=== PATIENT | female | born 1945 | race Caucasian/White ===

== ENCOUNTER 2018-05-08 20:54 | Inpatient (IN) | payer OTHER ==
--- NOTE | 2018-05-08 14:24 | PDOC ---
Rapid Medical Evaluation Time Seen by Provider: 05/08/18 14:21 Medical Evaluation: 05/08/18 14:21 I have performed a brief in-person evaluation patient. The patient presents with the chief complaint of: Left flank pain radiating to the groin since last evening with +n/v today/NBNB.. Pt denies any urinary symptoms NO H/O renal stones Pertinent physical exam findings: Left flank pain on percussion I have ordered the following:cbc/cmp/ua/uc/iv The patient will proceed to the ED for further evaluation. Discharge Disposition - Referrals Referrals: Lynn Healy MD [Primary Care Provider] - - Patient Instructions - Post Discharge Activity
[2018-05-08 14:47] LABS: URINE APPEARANCE CLOUDY; URINE BILIRUBIN NEGATIVE (<2.0 mg/dL); URINE COLOR YELLOW; URINE GLUCOSE (UA) 1+ (NEGATIVE); URINE KETONE NEGATIVE (NEGATIVE); URINE LEUK ESTERASE 2+ (NEGATIVE); URINE NITRITE NEGATIVE (NEGATIVE); URINE PROTEIN 1+ (NEGATIVE); URINE UROBILINOGEN NEGATIVE mg/dL (0.2-1.0)
[2018-05-08 14:52] LABS: EPI CELLS FEW /HPF (FEW); URINE HYALINE CAST 4 /lpf
--- NOTE | 2018-05-08 17:18 | PDOC ---
Attending Attestation - Resident Resident Name: Richard Dempsey - ED Attending Attestation I have performed the following: I have examined & evaluated the patient, The case was reviewed & discussed with the resident, I agree w/resident's findings & plan, Exceptions are as noted - HPI HPI: 05/08/18 17:08 72yo F hx HTN, HLD, diabetes, and osteoporosis p/w left flank pain wrapping around abdomen, radiating to the groin, which is exacerbated with movement since last evening. Patient reports associated symptoms of subjective chills, nausea, and 1 episode of NBNB emesis. Patient denies hematuria, dysuria, or any other urinary symptoms. Denies trauma. Denies chest pain, SOB, epigastric pain, focal weakness or numbness, denies h/o renal stones. - Physicial Exam PE: 05/08/18 17:55 GENERAL: Awake, alert, and fully oriented, in no acute distress. Pleasant. EYES: PERRLA, EOMI, sclera anicteric, conjunctiva clear ENT: Oropharynx clear without exudates. Moist mucosa NECK: Normal ROM, supple, no lymphadenopathy, JVD, or masses LUNGS: Breath sounds equal, clear to auscultation bilaterally. No wheezes, and no crackles HEART: Regular rate and rhythm, normal S1 and S2, no murmurs, rubs or gallops ABDOMEN: Soft, nontender, normoactive bowel sounds. No guarding, no rebound. No masses EXTREMITIES: Normal range of motion, no edema. No cords, erythema, or tenderness. WWP, 2+ pulses x4 BACK: No midline spinal tenderness in cervical/thoracic/lumbar region. + L CVAT NEUROLOGICAL: Normal speech, cranial nerves intact, negative pronator drift, 5/ 5 strength in all 4 extremities, normal sensation to light touch in all 4 extremities, normal cerebellar exam, normal gait, normal tone SKIN: Warm, dry, normal turgor, no rashes or lesions noted. - Medical Decision Making 05/08/18 18:04 72yo F hx HTN, HL, DM presents to the ED with 1 day of L flank pain radiating to LLQ a/w N/V. Vitals stable, pt well appearing. DDx includes renal colic vs UTI vs pyelonephritis vs MSK pain. UA concerning thus far with infection, given clinical evidence of pyelo, will cover with abx. CTAP pending to eval for renal colic. Labs pending. Anticipate admission. PT signed out to oncoming attending for f/u on diagnostics and mgmt
[2018-05-08 17:32] LABS: BASO % 0.8 % (0-2.0); EOS % 0.3 % (0-4.5); HEMATOCRIT 31.6 % (32.4-45.2); HEMOGLOBIN 10.2 GM/dL (10.7-15.3); LYMPH % 15.3 % (8-40); MCH 26.4 pg (25.7-33.7); MCHC 32.4 g/dl (32.0-36.0); MEAN CELL VOLUME 81.5 fl (80-96); MEAN PLT VOLUME 9.1 fl (7.5-11.1); MONO % 5.9 % (3.8-10.2); NEUT % 77.7 % (42.8-82.8); PLATELET COUNT 351 K/MM3 (134-434); RBC 3.87 M/mm3 (3.60-5.2); RDW 13.8 % (11.6-15.6); WHITE BLOOD COUNT 16.9 K/mm3 (4.0-10.0)
--- NOTE | 2018-05-08 18:35 | PDOC ---
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 Denies hx of UTIs, kidney stones, sick contacts, recent travel. Pt states the pain is constant, progressively worsened today, described as sharp and radiates from her left flank to the lower left abdomen. Denies difficulty urinating, dysuria, visible blood in urine, changes in bowel habits, CP, SOB. Past History - Past Medical History Allergies/Adverse Reactions: Allergies Allergy/AdvReac Type Severity Reaction Status Date / Time Penicillins Allergy Verified 05/08/18 14:25 COPD: No Diabetes: Yes Hypercholesterolemia: Yes Other medical history: osteoporosis - Suicide/Smoking/Psychosocial Hx Smoking History: Never smoked Have you smoked in the past 12 months: No Information on smoking cessation initiated: No Hx Alcohol Use: No Drug/Substance Use Hx: No Review of Systems - Review of Systems Constitutional: Yes: Chills. No: Fever Respiratory: No: Shortness of Breath Cardiac (ROS): No: Chest Pain ABD/GI: Yes: Nausea, Vomiting. No: Constipated, Diarrhea : No: Burning, Dysuria, Frequency, Flank Pain Musculoskeletal: Yes: Back Pain (left flank) *Physical Exam - Vital Signs Last Vital Signs Temp Pulse Resp BP Pulse Ox 97.5 F L 77 16 167/78 100 05/08/18 14:12 05/08/18 14:12 05/08/18 14:12 05/08/18 14:12 05/08/18 14:12 - Physical Exam General Appearance: Yes: Nourished, Appropriately Dressed, Apparent Distress ( sitting up in bed and in pain) HEENT: positive: EOMI Respiratory/Chest: positive: Lungs Clear, Normal Breath Sounds. negative: Accessory Muscle Use, Crackles, Rales, Rhonchi, Wheezing Cardiovascular: positive: Regular Rhythm, Regular Rate, S1, S2. negative: Edema , JVD, Murmur Vascular Pulses: Dorsalis-Pedis (R): 4+, Doralis-Pedis (L): 4+ Gastrointestinal/Abdominal: positive: Normal Bowel Sounds, Flat, Soft, Tenderness (left flank and abdomen). negative: Pulsatile Mass, Distended, Guarding, Rebound Musculoskeletal: positive: Normal Inspection, CVA Tenderness (L) Extremity: positive: Normal Capillary Refill Integumentary: positive: Normal Color, Dry, Warm Neurologic: positive: Fully Oriented, Alert, Normal Mood/Affect, Normal Response Moderate Sedation - Procedure Monitoring Vital Signs: Procedure Monitoring Vital Signs Temperature 97.5 F L 05/08/18 14:12 Pulse Rate 77 05/08/18 14:12 Respiratory Rate 16 05/08/18 14:12 Blood Pressure 167/78 05/08/18 14:12 O2 Sat by Pulse Oximetry (%) 100 05/08/18 14:12 ED Treatment Course - LABORATORY CBC & Chemistry Diagram: 05/08/18 16:24 05/08/18 14:24 - ADDITIONAL ORDERS Additional order review: Laboratory Results 05/08/18 14:26 Urine Color Yellow Urine Appearance Cloudy Urine pH 7.0 Ur Specific [place] 1.018 Urine Protein 1+ H Urine Glucose (UA) 1+ H Urine Ketones Negative Urine Blood 2+ H Urine Nitrite Negative Urine Bilirubin Negative Urine Urobilinogen Negative Ur Leukocyte Esterase 2+ H Urine WBC (Auto) 50 Urine RBC (Auto) 97 Ur Epithelial Cells Few Hyaline Casts 4 05/08/18 16:24 RBC 3.87 MCV 81.5 MCHC 32.4 RDW 13.8 MPV 9.1 Neutrophils % 77.7 Lymphocytes % 15.3 Monocytes % 5.9 Eosinophils % 0.3 Basophils % 0.8 - RADIOLOGY Radiology Studies Ordered: Category Date Time Status SPIRAL- RENAL-STONE CT [CT] Stat CT Scan 05/08/18 15:54 Ordered - Medications Given in the ED: ED Medications Discontinued Medications Generic Name Dose Route Start Last Admin Trade Name Freq PRN Reason Stop Dose Admin Oxycodone/Acetaminophen 1 combo 05/08/18 17:22 05/08/18 17:34 Percocet 5/325 - PO 05/08/18 17:23 1 combo ONCE ONE Administration Medical Decision Making - Medical Decision Making 72 yo female presents to the ED for 1 day of NB/NB vomiting, left CVA/Flank/ Abdominal tenderness and chills. Vitals WNL DDX includes but not limited to: Pyelo, Nephrolithiasis, UTI, diverticulitis Labs: WBC 16 UA + leak + blood Spiral CT for R/O stone Started on 1L NS and 1 g Ceftriaxone. 1 perc for pain. Some pain relief with medication 05/08/18 17:35 Pt allergic to penicillin with rash, no anaphylaxis in hx. Will administer ceftriaxone (3rd gen ceph with minimal cross reactivity) slowly and monitor for a rxn. Will have epi on hand if needed. sign out to Dr. Jade for further work up, CT results and admission *DC/Admit/Observation/Transfer Diagnosis at time of Disposition: Pyelonephritis - Referrals Referrals: Lynn Healy MD [Primary Care Provider] - - Patient Instructions - Post Discharge Activity
[2018-05-08 18:37] LABS: ALBUMIN 3.9 g/dl (3.4-5.0); ALK PHOS 49 U/L (45-117); ANION GAP 6 MMOL/L (8-16); BILIRUBIN,TOTAL 0.2 mg/dL (0.2-1); BLOOD UREA NITROGEN 17 mg/dL (7-18); CALCIUM 10.7 mg/dL (8.5-10.1); CHLORIDE 109 mmol/L (98-107); CO2 24 mmol/L (21-32); CREATININE 1.2 mg/dL (0.55-1.3); GLUCOSE,RANDOM 128 mg/dL (74-106); LIPASE 250 U/L (73-393); POTASSIUM 5.4 mmol/L (3.5-5.1); SGOT/AST 21 U/L (15-37); SGPT/ALT 30 U/L (13-61); SODIUM 139 mmol/L (136-145); TOT PROT 7.3 g/dl (6.4-8.2)
--- NOTE | 2018-05-08 20:25 | PDOC ---
*Physical Exam - Vital Signs Last Vital Signs Temp Pulse Resp BP Pulse Ox 97.5 F L 82 20 128/86 99 05/08/18 19:35 05/08/18 19:35 05/08/18 19:35 05/08/18 19:35 05/08/18 19:35 ED Treatment Course - LABORATORY CBC & Chemistry Diagram: 05/08/18 16:24 05/08/18 14:24 - ADDITIONAL ORDERS Additional order review: Laboratory Results 05/08/18 05/08/18 14:26 14:24 Sodium 139 Potassium 5.4 H Chloride 109 H Carbon Dioxide 24 Anion Gap 6 L BUN 17 Creatinine 1.2 Creat Clearance w eGFR 44.04 Random Glucose 128 H Calcium 10.7 H Total Bilirubin 0.2 AST 21 ALT 30 Alkaline Phosphatase 49 Creatine Kinase 81 Troponin I < 0.02 Total Protein 7.3 Albumin 3.9 Lipase 250 Urine Color Yellow Urine Appearance Cloudy Urine pH 7.0 Ur Specific [place] 1.018 Urine Protein 1+ H Urine Glucose (UA) 1+ H Urine Ketones Negative Urine Blood 2+ H Urine Nitrite Negative Urine Bilirubin Negative Urine Urobilinogen Negative Ur Leukocyte Esterase 2+ H Urine WBC (Auto) 50 Urine RBC (Auto) 97 Ur Epithelial Cells Few Hyaline Casts 4 05/08/18 16:24 RBC 3.87 MCV 81.5 MCHC 32.4 RDW 13.8 MPV 9.1 Neutrophils % 77.7 Lymphocytes % 15.3 Monocytes % 5.9 Eosinophils % 0.3 Basophils % 0.8 - Medications Given in the ED: ED Medications Discontinued Medications Generic Name Dose Route Start Last Admin Trade Name Freq PRN Reason Stop Dose Admin Sodium Chloride 500 mls @ 500 mls/hr 05/08/18 17:22 05/08/18 19:28 Normal Saline - IV 05/08/18 18:21 500 mls/hr ASDIR STA Administration Ceftriaxone Sodium 1 gm/ 100 mls @ 200 mls/hr 05/08/18 17:34 05/08/18 19:28 Dextrose IVPB 05/08/18 18:03 200 mls/hr ONCE ONE Administration Protocol Morphine Sulfate 4 mg 05/08/18 16:14 05/08/18 19:28 Morphine Injection - IVPUSH 05/08/18 16:15 Not Given ONCE ONE Oxycodone/Acetaminophen 1 combo 05/08/18 17:22 05/08/18 17:34 Percocet 5/325 - PO 05/08/18 17:23 1 combo ONCE ONE Administration Medical Decision Making - Medical Decision Making Received patient as a sign out. Patient signed out to me stating the patient will be admitted. We are just pending the read of the cat scan to determine whether the patient needs an urgent urological consult. Will admit patient for pylonephritis once CT comes back. CT showed 4 x 5 x 5 mm proximal left ureter stone with moderate hydroureteronephrosis - Will admit patient to hospitalist as well as obtain urological consult. - Making patient NPO in ED and adding on another liter of NS. - Spoke with Urologist: He agrees with current plan for admission, Abx, maintenance fluids of 150 cc/ hr, NPO, and flomax. Patient accepted to Dr. Baker's service. *DC/Admit/Observation/Transfer Diagnosis at time of Disposition: Pyelonephritis - Discharge Dispostion Decision to Admit order: Yes - Referrals Referrals: Lynn Healy MD [Primary Care Provider] - - Patient Instructions - Post Discharge Activity
[~2018-05-08 20:54] MED LIST: CEFTRIAXONE 1 GM in DEXTROSE 5%-WATER - 100 ML IVPB ONE; CEFTRIAXONE 1 GM/50 ML BAG ONE; SODIUM CHLORIDE 500 ML IV STA; morphine CARPU-JECT 4 MG/1 ML DISP.SYRIN IVPUSH ONE
[2018-05-08] MEDS ORDERED: SODIUM CHLORIDE 0.9% 500 ML INFUS.BAG IV ONE (20:58)
[2018-05-08] MEDS ORDERED: TAMSULOSIN HCL 0.4 MG CAP PO ONE (21:14)
--- NOTE | 2018-05-08 22:10 | PN ---
Teaching Attending Note Name of Resident: Elina Abdullahi ATTENDING PHYSICIAN STATEMENT I saw and evaluated the patient. I reviewed the resident's note and discussed the case with the resident. I agree with the resident's findings and plan as documented. CC: Flank Pain SUBJECTIVE: Patient seen and examined; please refer to the resident note for additional historical information. In summation, this is a 72 y/o HF with a PMH of HTN, IDDM, osteoporosis, presenting to the ER with a CC of abdominal pain radiating to the R-flank. Has been worsening over the past day; no recent abx or hospitalizations. Denies frequent UTIs. Found to have a 5x4x5 obstructing kidney stone associated with hydronephrosis with possible pyelonephritis on the contralateral side. She is hemodynamically stable and afebrile. Urology was consulted by the ER and recommended flomax and IVF and will see the patient. She denies previous renal stones or urological procedures. 10 sys ROS done and negative aside from HPI PMH HTN, HLD, DM, Osteoporosis; PSH reviewed (zakia spivey) FH asked and noncontributory Social history negative for tobacco, etoh. Resides with her grand daughter She is unsure of any medications she is on; her pharmacy will be called to confirm medications OBJECTIVE: VS, labs, imaging reviewed NAD, AAO, resting in bed Flank pain to percussion on L; no muscle spasm NT mildly distended +BS Milk hyperkalemia; leukocytosis to 16 UA suggests infection with 2+ LE, +WBC CT prelim findings show 4x5x5 stone in the proximal L-ureter with moderate right hydroureteronephrosis with perinephric soft tissue fatty stranding; cannot exclude superimposed pyelonephritis. Cystic collection along the inferior border of the liver possibly biloma, post- surgical pseudocyst, or mesenteric cyst. ASSESSMENT AND PLAN: Mrs. Robles presents with flank pain; found to have a 5mm renal stone with possible pyelonephritis. Urology called by ER; monitoring on medicine service 1) Acute pyelonephritis -Ceftriaxone, pain control -Followup blood and urine cultures -Likely 2/2 obstructive process; not septic. Monitor 2) Acute Hydronephrosis 2/2 renal stone -As 5mm consulted urology; flomax and fluids per their service. Appreciate consult. Deferring ultimate management per them if this will require procedure ; on the boarderline of size 3) Diabetes -SSI while inpatient 4) HTN -Monitor; PRN treatment if >160 SBP and confirm home medications 5) Osteoporosis -Obtain their home medication list 6) Milk HyperKalemia -EKG pending; rechecking after hydration FENA -Fluids as recommended by urology -BMP with PRN replete; recheck K -NPO until ascertained if procedure needed -As tolerated Full Code
[2018-05-08] MEDS ORDERED: TAMSULOSIN HCL 0.4 MG CAP ONE (22:47)
[2018-05-08] MEDS: oxyCODONE HCL 5 MG TABLET PO PRN (22:53)
[2018-05-08] MEDS ORDERED: oxyCODONE HCL 5 MG TABLET ONE (22:54)
--- NOTE | 2018-05-08 23:00 | HP ---
CHIEF COMPLAINT: Left Flank Pain PCP: Dr. Healy HISTORY OF PRESENT ILLNESS: 72 y/o F with PMHx of HTN, HLD, DM, Osteoporosis presents with Left sided Flank pain. 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 While getting out of bed this morning, Patient had a sudden onset of Strong pain throughout her stomach that radiated to her Left Hip. She is unable to describe the pain but quantified it as a constant 8/10 that caused difficulty with breathing and radiated to her lower back. This is the first time she has had this pain, and denies nay hx of UTI or kidney stones. The pain continued to worsen and The patient tried a "pink liquid medicine" without relief. The pain was accompanied by nausea and one episode of clear, NBNB vomiting, prompting the patients granddaughter to bring the patient to [facility]. Additionally endorses feelings of weakness, chills, decreased PO intake and decreased appetite. The pain improved in the ED after Morphine and percocet to 1/10. Denies any recent sick contacts or recent medication changes. Denies any fevers, chills, chest pain, SOB, Diarrhea, constipation, hematuria, dysuria. ER course was notable for: (1) Urology Consult (2) CT A/P (3) Morphine, Percocet, NS, Rocephin Recent Travel: Denies PAST MEDICAL HISTORY: HTN, HLD, DM, Osteoporosis PAST SURGICAL HISTORY: Cholecystectomy, Appendectomy Social History: Smoking: Denies Alcohol: Denies Drugs: Denies Ambulation: with cane Residence: With granddaughter Diet: Not much meat, 5-6 glasses water daily Family History: Mother: HTN Allergies Penicillins Allergy (Verified 05/08/18 14:25) HOME MEDICATIONS: REVIEW OF SYSTEMS As per HPI PHYSICAL EXAMINATION Vital Signs - 24 hr 05/08/18 05/08/18 14:12 19:35 Temperature 97.5 F L 97.5 F L Pulse Rate 77 Pulse Rate [ 82 Apical] Respiratory 16 20 Rate Blood Pressure 167/78 Blood Pressure 128/86 [Left Arm] O2 Sat by Pulse 100 99 Oximetry (%) GENERAL: A&Ox3, NAD HEAD: NCAT EYES: PERRL, EOMI EARS, NOSE, THROAT: Oropharynx clear without exudates. Moist mucous membranes. NECK: Supple without lymphadenopathy or JVD LUNGS: CTA b/l, No wheezes, No crackles. HEART: Regular rate and rhythm, normal S1 and S2 without murmur ABDOMEN: Soft, Slightly tender to palpation throughout, Distended, + bowel sounds, no guarding, no rebound, R>L CVA tenderness EXTREMITIES: 2+ pulses, 1+ edema. NEUROLOGICAL: Cranial nerves II-XII intact. Normal speech. SKIN: Warm, dry Laboratory Results - last 24 hr 05/08/18 05/08/18 05/08/18 14:24 14:26 16:24 WBC 16.9 H RBC 3.87 Hgb 10.2 L Hct 31.6 L MCV 81.5 MCH 26.4 MCHC 32.4 RDW 13.8 Plt Count 351 MPV 9.1 Absolute Neuts (auto) 13.1 H Neutrophils % 77.7 Lymphocytes % 15.3 Monocytes % 5.9 Eosinophils % 0.3 Basophils % 0.8 Nucleated RBC % 0 Sodium 139 Potassium 5.4 H Chloride 109 H Carbon Dioxide 24 Anion Gap 6 L BUN 17 Creatinine 1.2 Creat Clearance w eGFR 44.04 Random Glucose 128 H Calcium 10.7 H Total Bilirubin 0.2 AST 21 ALT 30 Alkaline Phosphatase 49 Creatine Kinase 81 Troponin I < 0.02 Total Protein 7.3 Albumin 3.9 Lipase 250 Urine Color Yellow Urine Appearance Cloudy Urine pH 7.0 Ur Specific [place] 1.018 Urine Protein 1+ H Urine Glucose (UA) 1+ H Urine Ketones Negative Urine Blood 2+ H Urine Nitrite Negative Urine Bilirubin Negative Urine Urobilinogen Negative Ur Leukocyte Esterase 2+ H Urine WBC (Auto) 50 Urine RBC (Auto) 97 Ur Epithelial Cells Few Hyaline Casts 4 ASSESSMENT/PLAN: 72 y/o F with PMHx of HTN, HLD, DM, Osteoporosis presents with Left sided Flank pain #Left Sided flank Pain -Likely Acute pyleonephritis due to UTI -WBC 16.9 -UA: 2+ Blood, 2+ LE, 50 WBC, Nitrite Negative -Urine cx pending -CT A/P (imaging disease intervention specialist read): [id number] proximal Left Ureter Stone with Moderate HydroUreterNephrosis -Continue Ceftriaxone -Urology consulted by ED, Continue NS @ 150 mls/hr, Start Flomax -Pain control via Oxycodone 5mg Q6H PRN -NPO pending urological evaluation #HTN -167/78 --> 128/86; Likely pain related -Continue to monitor -Restart home meds, Will need Med-Rec #DM -ISS BGMs ACHS -A1c ordered #HyperKalemia -Recheck BMP at Midnight after receiving IVF -EKG: NSR, VR 68, QTc 357, No peaked T Waves or Loss of P Waves seen #CT A/P finding of Cystic Collection at inferior Liver border -Possibly Biloma, Post Surgical Pseudocyst, Or Mesenteric Cyst -Can consider additional imaging once acute problem resolves -Continue to monitor #FEN -IV NS @ 150 mls/hr -Continue to monitor for hyperkalemia; BMP Pending at midnight -NPO #PPx -DVT: Lovenox Dispo: Admit to Med-surg, Will need Med-Rec Visit type - Emergency Visit Emergency Visit: Yes ED Registration Date: 05/08/18 Care time: The patient presented to the Emergency Department on the above date and was hospitalized for further evaluation of their emergent condition. - New Patient This patient is new to me today: Yes Date on this admission: 05/09/18 - Critical Care Critical Care patient: No
[2018-05-09] MEDS: SODIUM CHLORIDE 1,000 ML IV SCH ×4 (00:40→21:27)
[2018-05-09 04:10] VITALS: BMI 27.5
[2018-05-09] MEDS: INSULIN SLIDING SCALE (NOVOLOG) 1 VIAL SQ SCH ×4 (06:21→21:28)
[2018-05-09 07:40] LABS: BASO % 0.4 % (0-2.0); EOS % 1.1 % (0-4.5); HEMATOCRIT 26.4 % (32.4-45.2); HEMOGLOBIN 8.7 GM/dL (10.7-15.3); LYMPH % 29.7 % (8-40); MCHC 33.2 g/dl (32.0-36.0); MEAN CELL VOLUME 81.3 fl (80-96); MEAN PLT VOLUME 9.5 fl (7.5-11.1); MONO % 7.1 % (3.8-10.2); NEUT % 61.7 % (42.8-82.8); PLATELET COUNT 295 K/MM3 (134-434); RBC 3.24 M/mm3 (3.60-5.2); RDW 13.7 % (11.6-15.6); WHITE BLOOD COUNT 10.2 K/mm3 (4.0-10.0)
[2018-05-09 08:37] LABS: ALBUMIN 2.9 g/dl (3.4-5.0); ALK PHOS 39 U/L (45-117); ANION GAP 4 MMOL/L (8-16); BILIRUBIN,TOTAL 0.2 mg/dL (0.2-1); BLOOD UREA NITROGEN 18 mg/dL (7-18); CALCIUM 9.5 mg/dL (8.5-10.1); CHLORIDE 113 mmol/L (98-107); CO2 24 mmol/L (21-32); CREATININE 1.1 mg/dL (0.55-1.3); GLUCOSE,RANDOM 77 mg/dL (74-106); MAGNESIUM 1.2 mg/dL (1.8-2.4); PHOSPHOROUS 2.3 mg/dL (2.5-4.9); POTASSIUM 5.1 mmol/L (3.5-5.1); SGOT/AST 21 U/L (15-37); SGPT/ALT 29 U/L (13-61); SODIUM 141 mmol/L (136-145); TOT PROT 5.4 g/dl (6.4-8.2)
--- NOTE | 2018-05-09 10:21 | PN ---
Physical Exam: SUBJECTIVE: Patient seen and examined at bedside. No acute events overnight. Pt complaining of mild mid-abdominal pain. No flank pain reported. Denies urinary/ bowel symptoms. Denies hematuria. Pt also states she has a family hx of kidney stones. OBJECTIVE: Vital Signs Temperature 97.7 F 05/09/18 04:01 Pulse Rate 76 05/09/18 04:01 Respiratory Rate 18 05/09/18 04:01 Blood Pressure 143/90 05/09/18 04:01 O2 Sat by Pulse Oximetry (%) 97 05/09/18 04:01 GENERAL: A&Ox3, NAD HEAD: NCAT EYES: PERRL, EOMI EARS, NOSE, THROAT: Oropharynx clear without exudates. Moist mucous membranes. NECK: Supple without lymphadenopathy or JVD LUNGS: CTA b/l, No wheezes, No crackles. HEART: Regular rate and rhythm, normal S1 and S2 without murmur ABDOMEN: Soft, slight tender to palpation mid-abdominal tenderness. MSK: No CVA tenderness b/l. EXTREMITIES: 2+ pulses, 1+ edema. NEUROLOGICAL: Cranial nerves II-XII intact. Normal speech. SKIN: Warm, dry. CBCD WBC 10.2 K/mm3 (4.0-10.0) H 05/09/18 06:30 RBC 3.24 M/mm3 (3.60-5.2) L 05/09/18 06:30 Hgb 8.7 GM/dL (10.7-15.3) L 05/09/18 06:30 Hct 26.4 % (32.4-45.2) L D 05/09/18 06:30 MCV 81.3 fl (80-96) 05/09/18 06:30 MCHC 33.2 g/dl (32.0-36.0) 05/09/18 06:30 RDW 13.7 % (11.6-15.6) 05/09/18 06:30 Plt Count 295 K/MM3 (134-434) 05/09/18 06:30 MPV 9.5 fl (7.5-11.1) 05/09/18 06:30 CMP Sodium 141 mmol/L (136-145) 05/09/18 06:30 Potassium 5.1 mmol/L (3.5-5.1) 05/09/18 06:30 Chloride 113 mmol/L (98-107) H 05/09/18 06:30 Carbon Dioxide 24 mmol/L (21-32) 05/09/18 06:30 Anion Gap 4 MMOL/L (8-16) L 05/09/18 06:30 BUN 18 mg/dL (7-18) 05/09/18 06:30 Creatinine 1.1 mg/dL (0.55-1.3) 05/09/18 06:30 Creat Clearance w eGFR 48.69 (>60) 05/09/18 06:30 Calcium 9.5 mg/dL (8.5-10.1) 05/09/18 06:30 Total Bilirubin 0.2 mg/dL (0.2-1) 05/09/18 06:30 AST 21 U/L (15-37) 05/09/18 06:30 ALT 29 U/L (13-61) 05/09/18 06:30 Alkaline Phosphatase 39 U/L (45-117) L 05/09/18 06:30 Total Protein 5.4 g/dl (6.4-8.2) L 05/09/18 06:30 Albumin 2.9 g/dl (3.4-5.0) L 05/09/18 06:30 Active Medications Enoxaparin Sodium (Lovenox -) 40 mg SQ DAILY [facility], [facility]1983 Sodium Chloride (Normal Saline -) 1,000 mls @ 150 mls/hr IV ASDIR [facility]1983 Last Admin: 05/09/18 04:22 Dose: 150 mls/hr Ceftriaxone Sodium 1 gm/ (Dextrose) 100 mls @ 200 mls/hr IVPB DAILY [facility], [facility]1983; Protocol Insulin Aspart (Novolog Vial Sliding Scale -) 1 vial SQ ACHS [facility]1983; Protocol Last Admin: 05/09/18 06:21 Dose: Not Given Oxycodone HCl (Roxicodone -) 5 mg PO Q6H PRN PRN Reason: PAIN LEVEL 6-10 Last Admin: 05/08/18 22:53 Dose: 5 mg Tamsulosin HCl (Flomax -) 0.4 mg PO DAILY@0830 [facility]1983 CONSULT: Uro- Dr. Chapin IMAGING: * CTAP: 6x4mm proximal L ureteral calculus with mild hydronephrosis. Cystic structure of R flank, uncertain etiology. No add'l evidence of acute pathology. * CXR: No evidence of active lung disease. ASSESSMENT/PLAN: 72 y/o F with PMHx of HTN, HLD, DM, Osteoporosis presents with Left sided Flank pain #Left Sided flank Pain; likely 2/2 acute pyleonephritis due to UTI -WBC 10.2, improved. -UA: 2+ Blood, 2+ LE, 50 WBC, Nitrite Negative; BCx/UCx pending -CTAP noted above, 6x4mm proxim L ureteral calculus with mild hydronephrosis -Ceftriaxone 1gm QD (started 05/08/18) -NS @ 150 mls/hr -Flomax 0.4 PO QD -Oxycodone 5mg Q6H PRN for pain -Per uro, cont medical management/supportive therapy at this time as pt is improving symptomatically #HTN -167/78 --> 128/86; Likely pain related -Continue to monitor -Restart home meds, Will need Med-Rec #DM; A1c 7.9. -ISS BGMs ACHS -Will need outpatient follow up #HyperKalemia; K improved, 5.4 > 5.1 this AM. -EKG: NSR, VR 68, QTc 357, No peaked T Waves or Loss of P Waves seen #Cystic structure of R flank; incidental finding on CTAP -Possibly Biloma, Post Surgical Pseudocyst, Or Mesenteric Cyst -Can consider additional imaging once acute problem resolves -Continue to monitor #FEN -IV NS @ 150 mls/hr -Continue to monitor for hyperkalemia -Diabetic/sodium-controlled diet #PPx -DVT: Lovenox Dispo -Admit to Med-surg -needs med rec; Attempted to call pharmacy, no answer. Daughter does not know meds. Contacted PCP office, needs official record release form from patient. Fax to Visit type - Emergency Visit Emergency Visit: Yes ED Registration Date: 05/08/18 Care time: The patient presented to the Emergency Department on the above date and was hospitalized for further evaluation of their emergent condition. - New Patient This patient is new to me today: Yes Date on this admission: 05/09/18 - Critical Care Critical Care patient: No
[2018-05-09] MEDS ORDERED: MAGNESIUM OXIDE 400 MG TABLET (FP) PO ONE (10:37)
[2018-05-09] MEDS ORDERED: NAPH,MB-DB/K PH,MBDB POWDER PACKET PO ONE (10:37)
[2018-05-09] MEDS: TAMSULOSIN HCL 0.4 MG CAP PO SCH (11:20)
[2018-05-09] MEDS: ENOXAPARIN NA (PORCINE) 40 MG/0.4 ML DISP.SYRIN SQ SCH (13:09)
--- NOTE | 2018-05-09 13:14 | PN ---
Progress Note (short form) - Note Progress Note: 72 year old woman with a 6mm proximal ureteral stone. No infection or sepsis. Pain is improved today and she desires lunch. Continue medical expulsive therapy Imp- ureteral stone. treatment as above
[2018-05-09] MEDS ORDERED: DEXTROSE 5%-WATER - 50 ML IVPB ONE (15:04)
[2018-05-09] MEDS ORDERED: cefTRIAXone SODIUM 1 GM VIAL ONE (15:04)
[2018-05-09] MEDS: CEFTRIAXONE 1 GM in DEXTROSE 5%-WATER - 50 ML IVPB SCH (15:22)
--- NOTE | 2018-05-09 16:51 | EKG ---
Test Reason : Blood Pressure : / mmHG Vent. Rate : 068 BPM Atrial Rate : 068 BPM P-R Int : 154 ms QRS Dur : 066 ms QT Int : 336 ms P-R-T Axes : 035 015 049 degrees QTc Int : 357 ms NORMAL SINUS RHYTHM CANNOT RULE OUT ANTERIOR INFARCT , AGE UNDETERMINED ABNORMAL ECG NO PREVIOUS ECGS AVAILABLE Confirmed by FAUSTINO RAY MD ([id number]) on 05/09/2018 4:51:08 PM Referred By: Confirmed By:FAUSTINO RAY MD
--- NOTE | 2018-05-09 20:00 | PN ---
Teaching Attending Note Name of Resident: Maribel Gilliam ATTENDING PHYSICIAN STATEMENT I saw and evaluated the patient. I reviewed the resident's note and discussed the case with the resident. I agree with the resident's findings and plan as documented. SUBJECTIVE: Patient is feeling better with no acute distress. OBJECTIVE: Vital Signs Temperature 98.7 F 05/09/18 08:00 Pulse Rate 68 05/09/18 08:00 Respiratory Rate 20 05/09/18 08:00 Blood Pressure 129/64 05/09/18 08:00 O2 Sat by Pulse Oximetry (%) 97 05/09/18 08:00 GENERAL: A&Ox3, NAD HEAD: NCAT, EYES: PERRL, EOMI EARS, NOSE, THROAT: Oropharynx clear without exudates. Moist mucous membranes. NECK: Supple without lymphadenopathy or JVD LUNGS: CTA b/l, No wheezes, No crackles. HEART: Regular rate and rhythm, normal S1 and S2 without murmur ABDOMEN: Soft, slight tender to palpation mid-abdominal tenderness. MSK: No CVA tenderness b/l. EXTREMITIES: 2+ pulses, 1+ edema. NEUROLOGICAL: Cranial nerves II-XII intact. Normal speech. SKIN: Warm, dry. CBCD WBC 10.2 K/mm3 (4.0-10.0) H 05/09/18 06:30 RBC 3.24 M/mm3 (3.60-5.2) L 05/09/18 06:30 Hgb 8.7 GM/dL (10.7-15.3) L 05/09/18 06:30 Hct 26.4 % (32.4-45.2) L D 05/09/18 06:30 MCV 81.3 fl (80-96) 05/09/18 06:30 MCHC 33.2 g/dl (32.0-36.0) 05/09/18 06:30 RDW 13.7 % (11.6-15.6) 05/09/18 06:30 Plt Count 295 K/MM3 (134-434) 05/09/18 06:30 MPV 9.5 fl (7.5-11.1) 05/09/18 06:30 CMP Sodium 141 mmol/L (136-145) 05/09/18 06:30 Potassium 5.1 mmol/L (3.5-5.1) 05/09/18 06:30 Chloride 113 mmol/L (98-107) H 05/09/18 06:30 Carbon Dioxide 24 mmol/L (21-32) 05/09/18 06:30 Anion Gap 4 MMOL/L (8-16) L 05/09/18 06:30 BUN 18 mg/dL (7-18) 05/09/18 06:30 Creatinine 1.1 mg/dL (0.55-1.3) 05/09/18 06:30 Creat Clearance w eGFR 48.69 (>60) 05/09/18 06:30 Random Glucose 77 mg/dL (74-106) 05/09/18 06:30 Calcium 9.5 mg/dL (8.5-10.1) 05/09/18 06:30 Total Bilirubin 0.2 mg/dL (0.2-1) 05/09/18 06:30 AST 21 U/L (15-37) 05/09/18 06:30 ALT 29 U/L (13-61) 05/09/18 06:30 Alkaline Phosphatase 39 U/L (45-117) L 05/09/18 06:30 Total Protein 5.4 g/dl (6.4-8.2) L 05/09/18 06:30 Albumin 2.9 g/dl (3.4-5.0) L 05/09/18 06:30 CARDIAC ENZYMES Creatine Kinase 81 IU/L (26-192) 05/08/18 14:24 Troponin I < 0.02 ng/ml (0.00-0.05) 05/08/18 14:24 Current Medications Generic Name Dose Route Start Last Admin Trade Name Gaganq PRN Reason Stop Dose Admin Enoxaparin Sodium 40 mg 05/09/18 10:00 05/09/18 13:09 Lovenox - SQ 40 mg DAILY PARAG Administration Sodium Chloride 1,000 mls @ 150 mls/hr 05/08/18 22:30 05/09/18 12:58 Normal Saline - IV 150 mls/hr ASDIR PARAG Administration Ceftriaxone Sodium 1 gm/ 50 mls @ 100 mls/hr 05/09/18 14:15 05/09/18 15:22 Dextrose IVPB 100 mls/hr DAILY PARAG Administration Protocol Insulin Aspart 1 vial 05/09/18 07:00 05/09/18 17:01 Novolog Vial Sliding Scale - SQ 4 unit [facility] Administration Protocol Oxycodone HCl 5 mg 05/08/18 22:22 05/08/18 22:53 Roxicodone - PO 5 mg Q6H PRN Administration PAIN LEVEL 6-10 Tamsulosin HCl 0.4 mg 05/09/18 08:30 05/09/18 11:20 Flomax - PO Not Given DAILY@0830 [facility] Home Medications Medication Instructions Recorded Unobtainable 05/08/18 CTAP: 6x4mm proximal L ureteral calculus with mild hydronephrosis. Cystic structure of R flank, uncertain etiology. No add'l evidence of acute pathology. CXR: No evidence of active lung disease. ASSESSMENT/PLAN: 72 y/o F with PMHx of HTN, HLD, DM, Osteoporosis presents with Left sided Flank pain # acute pyleonephritis due to UTI: on iv antibiotics continue Flomax #HTN contolled now due to pain 167/78 --> 128/86; will continue to monitor #DM; A1c 7.9. [facility] Will need outpatient follow up #Cystic structure of R flank incidental findings on the CT AP: uncertain etiology as per report. # DVt PPx: Lovenox
[2018-05-10] MEDS: oxyCODONE HCL 5 MG TABLET PO PRN (05:29)
[2018-05-10] MEDS: INSULIN SLIDING SCALE (NOVOLOG) 1 VIAL SQ SCH ×3 (06:07→16:45)
[2018-05-10] MEDS: TAMSULOSIN HCL 0.4 MG CAP PO SCH (08:06)
[2018-05-10] MEDS: SODIUM CHLORIDE 1,000 ML IV SCH (08:07)
[2018-05-10 08:08] LABS: HEMATOCRIT 27.1 % (32.4-45.2); HEMOGLOBIN 8.4 GM/dL (10.7-15.3); MCH 25.5 pg (25.7-33.7); MCHC 30.9 g/dl (32.0-36.0); MEAN CELL VOLUME 82.5 fl (80-96); MEAN PLT VOLUME 9.1 fl (7.5-11.1); PLATELET COUNT 247 K/MM3 (134-434); RBC 3.29 M/mm3 (3.60-5.2); WHITE BLOOD COUNT 11.6 K/mm3 (4.0-10.0)
[2018-05-10 08:42] LABS: ANION GAP 6 MMOL/L (8-16); BLOOD UREA NITROGEN 14 mg/dL (7-18); CALCIUM 9.5 mg/dL (8.5-10.1); CHLORIDE 111 mmol/L (98-107); CO2 22 mmol/L (21-32); CREATININE 0.8 mg/dL (0.55-1.3); GLUCOSE,RANDOM 121 mg/dL (74-106); POTASSIUM 5.3 mmol/L (3.5-5.1); SODIUM 139 mmol/L (136-145)
[2018-05-10] MEDS ORDERED: DEXTROSE 5%-WATER - 50 ML IVPB ONE (09:22)
[2018-05-10] MEDS ORDERED: cefTRIAXone SODIUM 1 GM VIAL ONE (09:22)
[2018-05-10] MEDS: ENOXAPARIN NA (PORCINE) 40 MG/0.4 ML DISP.SYRIN SQ SCH (09:23)
[2018-05-10] MEDS ORDERED: ACETAMINOPHEN 325 MG TABLET (FP) PO PRN (09:23)
[2018-05-10] MEDS: CEFTRIAXONE 1 GM in DEXTROSE 5%-WATER - 50 ML IVPB SCH (09:23)
--- NOTE | 2018-05-10 13:19 | PN ---
Physical Exam: SUBJECTIVE: Patient seen and examined at bedside. No acute events overnight. Flank and abdominal pain is much improved. Afebrile. Primo PO diet. OBJECTIVE: Vital Signs Temperature 98.6 F 05/10/18 14:39 Pulse Rate 75 05/10/18 14:39 Respiratory Rate 18 05/10/18 10:00 Blood Pressure 141/73 05/10/18 14:39 O2 Sat by Pulse Oximetry (%) 95 05/10/18 09:00 GENERAL: A&Ox3, NAD HEAD: NCAT EYES: PERRL, EOMI EARS, NOSE, THROAT: Oropharynx clear without exudates. Moist mucous membranes. NECK: Supple without lymphadenopathy or JVD LUNGS: CTA b/l, No wheezes, No crackles. HEART: Regular rate and rhythm, normal S1 and S2 without murmur ABDOMEN: Soft, slight tender to palpation mid-abdominal tenderness. MSK: No CVA tenderness b/l. EXTREMITIES: 2+ pulses, 1+ edema. NEUROLOGICAL: Cranial nerves II-XII intact. Normal speech. SKIN: Warm, dry. CBCD WBC 11.6 K/mm3 (4.0-10.0) H 05/10/18 07:00 RBC 3.29 M/mm3 (3.60-5.2) L 05/10/18 07:00 Hgb 8.4 GM/dL (10.7-15.3) L 05/10/18 07:00 Hct 27.1 % (32.4-45.2) L 05/10/18 07:00 MCV 82.5 fl (80-96) 05/10/18 07:00 MCHC 30.9 g/dl (32.0-36.0) L 05/10/18 07:00 RDW 14.0 % (11.6-15.6) 05/10/18 07:00 Plt Count 247 K/MM3 (134-434) 05/10/18 07:00 MPV 9.1 fl (7.5-11.1) 05/10/18 07:00 CMP Sodium 139 mmol/L (136-145) 05/10/18 07:00 Potassium 5.3 mmol/L (3.5-5.1) H 05/10/18 07:00 Chloride 111 mmol/L (98-107) H 05/10/18 07:00 Carbon Dioxide 22 mmol/L (21-32) 05/10/18 07:00 Anion Gap 6 MMOL/L (8-16) L 05/10/18 07:00 BUN 14 mg/dL (7-18) 05/10/18 07:00 Creatinine 0.8 mg/dL (0.55-1.3) 05/10/18 07:00 Creat Clearance w eGFR > 60 (>60) 05/10/18 07:00 Calcium 9.5 mg/dL (8.5-10.1) 05/10/18 07:00 Total Bilirubin 0.2 mg/dL (0.2-1) 05/09/18 06:30 AST 21 U/L (15-37) 05/09/18 06:30 ALT 29 U/L (13-61) 05/09/18 06:30 Alkaline Phosphatase 39 U/L (45-117) L 05/09/18 06:30 Total Protein 5.4 g/dl (6.4-8.2) L 05/09/18 06:30 Albumin 2.9 g/dl (3.4-5.0) L 05/09/18 06:30 Active Medications Acetaminophen (Tylenol -) 650 mg PO Q6H PRN PRN Reason: Fever Or Pain Enoxaparin Sodium (Lovenox -) 40 mg SQ DAILY [facility] Last Admin: 05/10/18 09:23 Dose: 40 mg Ceftriaxone Sodium 1 gm/ (Dextrose) 50 mls @ 100 mls/hr IVPB DAILY [facility]; Protocol Last Admin: 05/10/18 09:23 Dose: 100 mls/hr Insulin Aspart (Novolog Vial Sliding Scale -) 1 vial SQ ACHS [facility]; Protocol Last Admin: 05/10/18 11:06 Dose: 2 unit Oxycodone HCl (Roxicodone -) 5 mg PO Q6H PRN PRN Reason: PAIN LEVEL 6-10 Last Admin: 05/10/18 05:29 Dose: 5 mg Tamsulosin HCl (Flomax -) 0.4 mg PO DAILY@0830 [facility] Last Admin: 05/10/18 08:06 Dose: 0.4 mg CONSULT: Uro- Dr. Chapin IMAGING: * CTAP: 6x4mm proximal L ureteral calculus with mild hydronephrosis. Cystic structure of R flank, uncertain etiology. No add'l evidence of acute pathology. * CXR: No evidence of active lung disease. * Renal U/S: No sonographic evidence of nephrolithiasis. Mild L-sided hydronephrosis. * Abd xray: pending ASSESSMENT/PLAN: 72 y/o F with PMHx of HTN, HLD, DM, Osteoporosis presents with Left sided Flank pain #Left Sided flank Pain; likely 2/2 nephrolithiasis -WBC 10.2, improved. -UA: 2+ Blood, 2+ LE, 50 WBC, Nitrite Negative; BCx neg x24h -CTAP noted above, 6x4mm proxim L ureteral calculus with mild hydronephrosis -Ceftriaxone 1gm QD (started 05/08/18); Can be dc'd as UCx was neg -NS @ 150 mls/hr -Flomax 0.4 PO QD -Oxycodone 5mg Q6H PRN for pain -Per uro, cont medical management/supportive therapy at this time as pt is improving symptomatically. Will need outpatient follow up. #HTN -167/78 --> 128/86; Likely pain related -Continue to monitor -Restart home meds, Will need Med-Rec #DM; A1c 7.9. -ISS BGMs ACHS -Will need outpatient follow up #HyperKalemia; K improved, 5.4 > 5.1 this AM. -EKG: NSR, VR 68, QTc 357, No peaked T Waves or Loss of P Waves seen #Cystic structure of R flank; incidental finding on CTAP -Possibly Biloma, Post Surgical Pseudocyst, Or Mesenteric Cyst -Can consider additional imaging once acute problem resolves -Continue to monitor -Surg consult ordered for further evaluation #FEN -IV NS @ 150 mls/hr -Continue to monitor for hyperkalemia -Diabetic/sodium-controlled diet #PPx -DVT: Lovenox Dispo -cont to monitor on med-surg -meds reconciled Visit type - Emergency Visit Emergency Visit: Yes ED Registration Date: 05/08/18 Care time: The patient presented to the Emergency Department on the above date and was hospitalized for further evaluation of their emergent condition. - New Patient This patient is new to me today: No - Critical Care Critical Care patient: No
--- NOTE | 2018-05-10 13:53 | CON.GU ---
Consult Consult Specialty:: Referred by:: medicine Reason for Consultation:: 72 year old woman with a 6mm ureteral calculus - History of Present Illness Chief Complaint: 72 year old woman with a 6mm ureteral calculus History of Present Illness: 72 year old woman with a 6mm proximal ureteral stone. Pain is improved since admission. Urine culture is negative. no signs of sepsis. no previous stones. - History Source History Provided By: Patient, Medical Record Limitations to Obtaining History: No Limitations - Alcohol/Substance Use Hx Alcohol Use: No - Smoking History Smoking history: Never smoked Have you smoked in the past 12 months: No Home Medications - Allergies Allergies/Adverse Reactions: Allergies Allergy/AdvReac Type Severity Reaction Status Date / Time Penicillins Allergy Verified 05/08/18 14:25 - Home Medications Home Medications: Ambulatory Orders Acetaminophen [Tylenol Extra Strength] 2 tab PO BID 05/10/18 Alendronate Sodium [Binosto] 1 cap PO WEEKLY 05/10/18 Atorvastatin Ca [Lipitor] 1 tab PO DAILY 05/10/18 Cetirizine HCl [Zyrtec -] 1 tab PO DAILY 05/10/18 Gabapentin 1 cap PO TID 05/10/18 Hydrochlorothiazide 1 tab PO DAILY 05/10/18 Insulin Glargine,Hum.rec.anlog [Basaglar Kwikpen U-100] 40 units SQ HS 05/10/18 Latanoprost 0.005% Eye Drops [Xalatan 0.005% Eye Drops -] 1 drop OD HS 05/10/18 Lisinopril [Prinivil -] 1 tab PO DAILY 05/10/18 Metformin HCl [Metformin HCl ER] 1 tab PO DAILY 05/10/18 Metoprolol Succinate [Toprol Xl] 0.5 tab PO DAILY 05/10/18 Review of Systems - Review of Systems Constitutional: denies: Chills, Fever Genitourinary: reports: Flank Pain Physical Exam- Vital Signs: Vital Signs Temperature 98.0 F 05/10/18 10:00 Pulse Rate 77 05/10/18 10:00 Respiratory Rate 18 05/10/18 10:00 Blood Pressure 126/66 05/10/18 10:00 O2 Sat by Pulse Oximetry (%) 95 05/10/18 09:00 Constitutional: Yes: Well Nourished, No Distress, Calm Respiratory: Yes: WNL, Regular, CTA Bilaterally Gastrointestinal: Yes: WNL, Normal Bowel Sounds Renal/: No: Bladder Distention, CVA Tenderness - Left, CVA Tenderness - Right , Lay Present, Hematuria Labs: CBC, BMP 05/10/18 07:00 05/10/18 07:00 Imaging - Results Cat Scan: Report Reviewed Problem List - Problems (1) Calculus of ureter Assessment/Plan: patient undergoing medical expulsive therapy. pain is improved. repeat sonogram. strain all urine. repeat sonogram. will follow Code(s): N20.1 - CALCULUS OF URETER
--- NOTE | 2018-05-10 19:17 | PN ---
Teaching Attending Note Name of Resident: Maribel Gilliam ATTENDING PHYSICIAN STATEMENT I saw and evaluated the patient. I reviewed the resident's note and discussed the case with the resident. I agree with the resident's findings and plan as documented. SUBJECTIVE: no fever or chills. has L sided pain still but better . OBJECTIVE: NAD CV: RRR Lungs: CTAB Ext : no edema ASSESSMENT AND PLAN: 72 y/o lady with h/o DM , HTN, HLP, who presented with L sided flank pain and was found to have L obstructive ureteral stone with L hydronephrosis 1- L hydro 2/2 obstructing L ureteral stone. urine cx neg , was taken before Abx were given. No UTI - dc ABx -KUB show the stone in L side - US still shows hydro today - case was d/w Uro regarding relieving the obstruction . No intervention was recommended - will cont to strain the urine . - will make her NPO after MN in case she needs a procedure tomorrow 2- DM : change SSI to TIDAC 3- R flank cystic structure: not clear of origin or etiology. consult sx dispo : HLOC
[2018-05-11] MEDS: INSULIN SLIDING SCALE (NOVOLOG) 1 VIAL SQ SCH ×3 (06:15→16:01)
[2018-05-11 08:11] LABS: HEMATOCRIT 28.3 % (32.4-45.2); MCH 25.6 pg (25.7-33.7); MCHC 31.6 g/dl (32.0-36.0); MEAN CELL VOLUME 80.9 fl (80-96); MEAN PLT VOLUME 9.3 fl (7.5-11.1); PLATELET COUNT 237 K/MM3 (134-434); RDW 13.5 % (11.6-15.6)
[2018-05-11 08:42] LABS: ANION GAP 7 MMOL/L (8-16); BLOOD UREA NITROGEN 15 mg/dL (7-18); CHLORIDE 109 mmol/L (98-107); CO2 23 mmol/L (21-32); CREATININE 0.8 mg/dL (0.55-1.3); GLUCOSE,RANDOM 139 mg/dL (74-106); SODIUM 139 mmol/L (136-145)
[2018-05-11] MEDS: TAMSULOSIN HCL 0.4 MG CAP PO SCH (09:25)
--- NOTE | 2018-05-11 11:51 | CONSULT ---
- Consultation REQUESTING PROVIDER: CONSULT REQUEST: We have been asked to surgically evaluate this patient for incidental findings found on a CT scan of the a/p done on this admission. PCP:Suri Scott HISTORY OF PRESENT ILLNESS: PMHx: iddm; hld; htn PSHx: lap allyssa Home Medications Medication Instructions Recorded Acetaminophen [Tylenol Extra 2 tab PO BID 05/10/18 Strength] Alendronate Sodium [Binosto] 1 cap PO WEEKLY 05/10/18 Atorvastatin Ca [Lipitor] 1 tab PO DAILY 05/10/18 Cetirizine HCl [Zyrtec -] 1 tab PO DAILY 05/10/18 Gabapentin 1 cap PO TID 05/10/18 Hydrochlorothiazide 1 tab PO DAILY 05/10/18 Insulin Glargine,Hum.rec.anlog 40 units SQ HS 05/10/18 [Basaglar Kwikpen U-100] Latanoprost 0.005% Eye Drops 1 drop OD HS 05/10/18 [Xalatan 0.005% Eye Drops -] Lisinopril [Prinivil -] 1 tab PO DAILY 05/10/18 Metformin HCl [Metformin HCl ER] 1 tab PO DAILY 05/10/18 Metoprolol Succinate [Toprol Xl] 0.5 tab PO DAILY 05/10/18 Allergies Allergy/AdvReac Type Severity Reaction Status Date / Time Penicillins Allergy Verified 05/08/18 14:25 PHYSICAL EXAM: GENERAL: Awake, alert, and fully oriented, in no acute distress. HEAD: Normal with no signs of trauma. EYES: PERRL, sclera anicteric, conjunctiva clear. NECK: Normal ROM, supple without lymphadenopathy, JVD, or masses. LUNGS: Clear to auscultation bilat anteriorly. No wheezes, and no crackles. No accessory muscle use. HEART: Regular rate and rhythm. No murmurs ABDOMEN: Soft, nontender, not distended, normoactive bowel sounds, no guarding, no rebound, no masses. No organomegaly. MUSCULOSKELETAL: Normal ROM at all joints. No bony deformities or tenderness. No CVA tenderness. UPPER EXTREMITIES: 2+ pulses, warm, well-perfused. No cyanosis. Cap refill <2 seconds. No peripheral edema. LOWER EXTREMITIES: 2+ pulses, warm, well-perfused. No calf tenderness. No peripheral edema. NEUROLOGICAL: Normal speech, gait not observed. PSYCH: Cooperative. Good eye contact. Appropriate mood and affect. SKIN: Warm, dry, normal turgor, no rashes or lesions noted. Vital Signs Temperature 98.0 F 05/11/18 08:45 Pulse Rate 62 05/11/18 08:45 Respiratory Rate 18 05/11/18 08:45 Blood Pressure 122/59 L 05/11/18 08:45 O2 Sat by Pulse Oximetry (%) 96 05/11/18 08:45 Lab Results WBC 7.0 K/mm3 (4.0-10.0) 05/11/18 07:00 RBC 3.50 M/mm3 (3.60-5.2) L 05/11/18 07:00 Hgb 9.0 GM/dL (10.7-15.3) L 05/11/18 07:00 Hct 28.3 % (32.4-45.2) L 05/11/18 07:00 MCV 80.9 fl (80-96) 05/11/18 07:00 MCHC 31.6 g/dl (32.0-36.0) L 05/11/18 07:00 RDW 13.5 % (11.6-15.6) 05/11/18 07:00 Plt Count 237 K/MM3 (134-434) 05/11/18 07:00 Sodium 139 mmol/L (136-145) 05/11/18 07:00 Potassium 5.0 mmol/L (3.5-5.1) 05/11/18 07:00 Chloride 109 mmol/L (98-107) H 05/11/18 07:00 Carbon Dioxide 23 mmol/L (21-32) 05/11/18 07:00 Anion Gap 7 MMOL/L (8-16) L 05/11/18 07:00 BUN 15 mg/dL (7-18) 05/11/18 07:00 Creatinine 0.8 mg/dL (0.55-1.3) 05/11/18 07:00 Random Glucose 139 mg/dL (74-106) H 05/11/18 07:00 Calcium 10.0 mg/dL (8.5-10.1) 05/11/18 07:00 CT a/p reviewed- IMP: radiological incidentoloma w/r/t to reason for this admission PLAN: Would try and see if previous imaging is available to c/w with; if not consider MRI to further delineate; perhaps this is related to her previous lap allyssa; nevertheless interval imaging is recommended.
--- NOTE | 2018-05-11 15:57 | PN ---
Teaching Attending Note Name of Resident: Maribel Gilliam ATTENDING PHYSICIAN STATEMENT I saw and evaluated the patient. I reviewed the resident's note and discussed the case with the resident. I agree with the resident's findings and plan as documented. SUBJECTIVE: no fever or chills . no SOB . no abd pain OBJECTIVE: NAD CV: RRR Lungs: CTAB Ext: no edema Abd: soft, NT, ND , NL BS ASSESSMENT AND PLAN: 72 y/o lady with h/o DM , HTN, HLP, who presented with L sided flank pain and was found to have L obstructive ureteral stone with L hydronephrosis 1- L hydro 2/2 obstructing L ureteral stone. no evidence of UTI pain resolved , and abd exam shows no tenderness KUB was d/w radiologist who did not identify a stone . ? passed it need follow up with urology as out pt , and US of kidney . cont flomax 2- DM 3- R flank cystic structure: appreciate surgery input. will need MRI and serial imaging. will update family and patient and have pa tylornt follow up with Dr. Mari for further w/u dispo : Dc home
--- NOTE | 2018-05-11 17:35 | DS ---
Physical Exam: SUBJECTIVE: Patient seen and examined at bedside. No acute events overnight. OBJECTIVE: Vital Signs Period Temp Pulse Resp BP Sys/Henry Pulse Ox Last 24 Hr 98 F-98.3 F 62-72 18-21 122-136/59-72 95-96 PHYSICAL EXAM GENERAL: A&Ox3, NAD HEAD: NCAT EYES: PERRL, EOMI EARS, NOSE, THROAT: Oropharynx clear without exudates. Moist mucous membranes. NECK: Supple without lymphadenopathy or JVD LUNGS: CTA b/l, No wheezes, No crackles. HEART: Regular rate and rhythm, normal S1 and S2 without murmur ABDOMEN: Soft, slight tender to palpation mid-abdominal tenderness. MSK: No CVA tenderness b/l. EXTREMITIES: 2+ pulses, 1+ edema. NEUROLOGICAL: Cranial nerves II-XII intact. Normal speech. SKIN: Warm, dry. LABS Laboratory Results - last 24 hr 05/11/18 05/11/18 05/11/18 05:47 07:00 07:00 WBC 7.0 RBC 3.50 L Hgb 9.0 L Hct 28.3 L MCV 80.9 MCH 25.6 L MCHC 31.6 L RDW 13.5 Plt Count 237 MPV 9.3 Sodium 139 Potassium 5.0 Chloride 109 H Carbon Dioxide 23 Anion Gap 7 L BUN 15 Creatinine 0.8 Creat Clearance w eGFR > 60 POC Glucometer 144 Random Glucose 139 H Calcium 10.0 05/11/18 05/11/18 11:28 15:56 WBC RBC Hgb Hct MCV MCH MCHC RDW Plt Count MPV Sodium Potassium Chloride Carbon Dioxide Anion Gap BUN Creatinine Creat Clearance w eGFR POC Glucometer 142 139 Random Glucose Calcium HOSPITAL COURSE: Date of Admission:05/08/18 IMAGING: * CTAP: 6x4mm proximal L ureteral calculus with mild hydronephrosis. Cystic structure of R flank, uncertain etiology. No add'l evidence of acute pathology. * CXR: No evidence of active lung disease. 72 y/o F with PMHx of HTN, HLD, DM, Osteoporosis presents with Left sided Flank pain 2/[address] imaging was done that showed 6x4m L ureteral calculus with mild L hydronephrosis as well as a cystic collection at inferior liver border. Pt was given IVf and Flomax to help pass the stone. She was also given Ceftriaxone for possible UTI. Pt was assessed by urology. Throughout pt's hospital course, she was seen afebrile, non-toxic, resolving pain and as a result, no urologic surgical intervention was needed. UCx was neg and Ceftriaxone was discontinued. Additionally, pt was seen by surgery to assess incidental CT finding of cystic collection at liver border. No surgical intervention was needed at this time, however pt was advised to follow up with surgery outpatient for further evaluation. Pt's pain symptoms improved markedly throughout duration of stay. She was discharged home and strongly advised to follow up with urology for potential need for stone removal and to continue Flomax for 14 days. Discharge instructions were verbalized to both patient and family (via phone). Date of Discharge: 05/11/18 Minutes to complete discharge: 40 Discharge Summary Reason For Visit: PYELONEPHRITIS Condition: Improved - Instructions Diet, Activity, Other Instructions: You were seen in the hospital for complaints of left flank pain. In the hospital, a CT of the abdomen was done that showed a 6mm kidney stone in your left ureter and fluid around the kidneys. You were given pain meds, IV fluids and Flomax to help pass the kidney stone. Additionally, you were assessed by a urologist and found to have no acute intervention done at this time although you will need outpatient follow up after discharge. Throughout your hospital stay your symptoms improved. You are being discharged home. MEDICAL RECOMMENDATIONS We have added the following medication(s) to your regimen: Please take Flomax 0.4 mg once a day by mouth. Please continue taking your home medications as directed. CONSULT RECOMMENDATIONS Please follow up with your primary care physician within 1 week, Dr. Lynn Dumont. Please follow up with your urologist, Dr. Chapin, within 1 week for evaluation of your ureteral stone. If you start experiencing worsening pain symptoms, please make an appointment with Dr. Chapin as soon as possible. Please also make an appointment with Dr. Mari for further evaluation of a cyst found near your liver. You may need repeat imaging. If you experience persistent flank/abdominal/back pain, shortness of breath, fever/chills, chest pain, worsening urinary symptoms, or mental status changes, please proceed to your nearest emergency room immediately. You need repeat ultrasound of the kidneys in 1 week. Contact your insurance. If Dr. Chapin does not take your insurance. you might be referred to other urologist who accept it. Te vieron en el hospital por quejas de dolor en el flanco joaquin. En el hospital, se realiz ben TC del abdomen que mostr ben pura renal de 6mm en el urter joaquin y fluido alrededor de los riones. Le dieron analgsicos, lquidos intravenosos y Flomax para ayudar a pasar la pura del rin. Adicionalmente, usted fue evaluado por un urlogo y se encontr que no tuvo ben intervencin aguda en real momento, aunque necesitar seguimiento ambulatorio despus del alli. Kayli la estancia hospitalaria, los sntomas mejoraron. Ests siendo despedido de casa. RECOMENDACIONES MDICAS Hemos aadido el siguiente medicamento (s) a da silva rgimen: Por favor tome Flomax 0,4 mg ben vez al da por la boca. Por favor, contine tomando livia medicamentos caseros libby se indica. CONSULTE RECOMENDACIONES Por favor bobo un seguimiento con da silva mdico de atencin primaria dentro de ben semana, Dra. Lynn Dumont. Por favor, bobo un seguimiento con da silva urlogo, el Dr. Chapin, dentro de 1 semana para la evaluacin de da silva clculo ureteral. Si comienza a experimentar un empeoramiento de los sntomas del dolor, bobo ben sg con el Dr. Chapin lo antes posible. Tambin bobo ben sg con el Dr. Mari para ben evaluacin adicional de un quiste encontrado cerca de da silva hgado. Es posible que necesite repetir la imagen. Si experimenta dolor persistente en el flanco / abdomen / espalda, dificultad para respirar, fiebre / escalofros, dolor en el pecho, empeoramiento de los sntomas urinarios o cambios en el estado mental, dirjase a la lukas de emergencias ms cercana de inmediato. Necesita repetir la ecografa de los riones en 1 semana. Pngase en contacto con da silva seguro. Si el Dr. Chapin no flynn da silva seguro. Usted podra ser referido a otro urlogo que lo acepte. Referrals: Wilmer Mari MD [Staff Physician] - 1 Week Lynn Healy MD [Primary Care Provider] - 1 Week Freddy Chapin MD [Staff Physician] - 1 Week Disposition: HOME - Home Medications Comprehensive Discharge Medication List: Ambulatory Orders Alendronate Sodium [Binosto] 1 cap PO WEEKLY 05/10/18 Atorvastatin Ca [Lipitor] 1 tab PO DAILY 05/10/18 Cetirizine HCl [Zyrtec -] 1 tab PO DAILY 05/10/18 Gabapentin 1 cap PO TID 05/10/18 Hydrochlorothiazide 1 tab PO DAILY 05/10/18 Insulin Glargine,Hum.rec.anlog [Basaglar Kwikpen U-100] 40 units SQ HS 05/10/18 Latanoprost 0.005% Eye Drops [Xalatan 0.005% Eye Drops -] 1 drop OD HS 05/10/18 Lisinopril [Prinivil -] 1 tab PO DAILY 05/10/18 Metformin HCl [Metformin HCl ER] 1 tab PO DAILY 05/10/18 Metoprolol Succinate [Toprol Xl] 0.5 tab PO DAILY 05/10/18 Tamsulosin HCl [Flomax -] 0.4 mg PO DAILY@0830 #14 cap.er.24h 05/11/18 This patient is new to me today: No Emergency Visit: Yes ED Registration Date: 05/08/18 Care time: The patient presented to the Emergency Department on the above date and was hospitalized for further evaluation of their emergent condition. Critical Care patient: No - Discharge Referral Referred to [facility] No
[2018-05-11 18:29] VITALS: BP 118/67; PULSE 66; TEMP 97.9
== END 2018-05-11 18:33 | disposition home or self-care (01) | DRG 465 ==
LOC: JER 20:54 → JERBED 20:55 → JER 20:55 → J6S 05-09 03:55
PROVIDERS: ADMIT Internal Medicine; ATTEND Internal Medicine
DX: N13.2 Hydronephrosis with renal and ureteral calculous obstruction (principal); E78.5 Hyperlipidemia, unspecified; E11.9 Type 2 diabetes mellitus without complications; I10 Essential (primary) hypertension; E87.5 Hyperkalemia; M81.0 Age-related osteoporosis without current pathological fracture
CPT/HCPCS: 36415; 71046-TC-FY; 74018-TC-FY; 74176; 76775-TC; 76856-TC; 80048; 80053; 81003; 81015; 82550; 82962; 83036; 83690; 83735; 84100; 84484; 85025; 85027; 87040; 87086; 93005; 93010; 97116-GP; 97161-GP; 99284-25; J7030